=== PATIENT | male | born 1965 | race Caucasian/White ===

== ENCOUNTER 2017-08-18 09:07 | Observation (INO) | payer OTHER ==
[2017-08-18] VITALS (8 sets, daily range): BP systolic 105–174; BP diastolic 65–95; PULSE 84–106; RESP 18–23; TEMP 94–98.8; O2SAT 95–100
[~2017-08-18] VITALS: Ht 182.9 cm; Wt 153.6 kg
[2017-08-18] MEDS ORDERED: LISI10TA3 PO (09:22)
--- NOTE | 2017-08-18 09:42 | PD ---
HPI Chief Complaint: Chest Pain Time Seen by Provider: 09:29 Travel History International Travel<30 days: No Contact w/Intl Traveler<30days: No Traveled to known affect area: No History of Present Illness HPI 51yo M with PMH of HTN presents to the ED with c/o midsternal chest pain this morning. Said it is more of a discomfort and lasting seconds at a time. It is intermittent, nonradiating. Sitting up makes pain better. No exacerbating factors. Pt had some bilateral chest pressure a few days ago but went away on its own. +Occasional cough. Denies any fever, sob, n/v, abdominal pain, focal weakness or numbness. Pt had cardiac stress test bout 3-4 years ago. Does not have manufacturing helper. PFSH Past Medical History Diminished Hearing: No Hypertension: Yes Influenza Vaccination: No Past Surgical History Surgical History: No Previous Surgery Social History Alcohol Use: Yes (OCCASIONALLY) Tobacco Use: No Substance Use: No Allergies-Medications (Allergen,Severity, Reaction): Coded Allergies: No Known Allergies (Unverified , 08/18/17) Reported Meds & Prescriptions Reported Meds & Active Scripts Active Reported Lisinopril 10 Mg Tab 10 Mg PO DAILY Review of Systems Except as stated in HPI: all other systems reviewed are Neg Physical Exam Narrative GENERAL: 51yo M not in distress. SKIN: Focused skin assessment warm/dry. HEAD: Atraumatic. Normocephalic. EYES: Pupils equal and round. No scleral icterus. No injection or drainage. ENT: No nasal bleeding or discharge. Mucous membranes pink and moist. NECK: Trachea midline. No JVD. CARDIOVASCULAR: Tachycardic at low 100s. No murmur appreciated. RESPIRATORY: No accessory muscle use. Clear to auscultation. Breath sounds equal bilaterally. GASTROINTESTINAL: Abdomen soft, non-tender, nondistended. MUSCULOSKELETAL: No obvious deformities. No clubbing. No cyanosis. No edema. NEUROLOGICAL: Awake and alert. No obvious cranial nerve deficits. Motor grossly within normal limits. Normal speech. PSYCHIATRIC: Appropriate mood and affect; insight and judgment normal. Data Data Last Documented VS Vital Signs Date Time Temp Pulse Resp B/P (MAP) Pulse Ox O2 Delivery O2 Flow Rate FiO2 08/18/17 12:03 106 18 122/75 (91) 97 Room Air 08/18/17 09:09 98.8 Orders Orders Electrocardiogram (08/18/17 ) Basic Metabolic Panel (Bmp) (08/18/17 09:36) Ckmb (Isoenzyme) Profile (08/18/17 09:36) Complete Blood Count With Diff (08/18/17 09:36) Magnesium (Mg) (08/18/17 09:36) Prothrombin Time / Inr (Pt) (08/18/17 09:36) Act Partial Throm Time (Ptt) (08/18/17 09:36) Troponin I (08/18/17 09:36) Chest, Single Ap (08/18/17 09:36) Admit Order (Ed Use Only) (08/18/17 12:19) Aspirin (Aspirin) (08/18/17 12:30) Labs Laboratory Tests Test 08/18/17 09:53 White Blood Count 6.8 TH/MM3 Red Blood Count 5.53 MIL/MM3 Hemoglobin 16.4 GM/DL Hematocrit 47.2 % Mean Corpuscular Volume 85.3 FL Mean Corpuscular Hemoglobin 29.7 PG Mean Corpuscular Hemoglobin Concent 34.8 % Red Cell Distribution Width 14.2 % Platelet Count 328 TH/MM3 Mean Platelet Volume 7.9 FL Neutrophils (%) (Auto) 59.9 % Lymphocytes (%) (Auto) 29.1 % Monocytes (%) (Auto) 9.4 % Eosinophils (%) (Auto) 0.9 % Basophils (%) (Auto) 0.7 % Neutrophils # (Auto) 4.1 TH/MM3 Lymphocytes # (Auto) 2.0 TH/MM3 Monocytes # (Auto) 0.6 TH/MM3 Eosinophils # (Auto) 0.1 TH/MM3 Basophils # (Auto) 0.0 TH/MM3 CBC Comment AUTO DIFF Differential Comment AUTO DIFF CONFIRMED Platelet Estimate NORMAL Platelet Morphology Comment NORMAL Red Cell Morphology Comment NORMAL Prothrombin Time 10.5 SEC Prothromb Time International Ratio 1.0 RATIO Activated Partial Thromboplast Time 24.3 SEC Blood Urea Nitrogen 13 MG/DL Creatinine 1.15 MG/DL Random Glucose 118 MG/DL Calcium Level 9.1 MG/DL Magnesium Level 2.1 MG/DL Sodium Level 137 MEQ/L Potassium Level 4.2 MEQ/L Chloride Level 104 MEQ/L Carbon Dioxide Level 22.9 MEQ/L Anion Gap 10 MEQ/L Estimat Glomerular Filtration Rate 67 ML/MIN Total Creatine Kinase 92 U/L Troponin I LESS THAN 0.02 NG/ML MDM Medical Decision Making Medical Screen Exam Complete: Yes Emergency Medical Condition: Yes Interpretation(s) EKG: Sinus tachycardia at 107bpm. LAD. Q wave III, aVF. No prior to compare. Differential Diagnosis ACS vs. pneumonia Narrative Course 51yo M with atypical chest pain. Pt given aspirin and sublingual nitro PRN chest pain. Labs reviewed, no leukocytosis. Troponin negative. CXR negative. Pt has not had a stress test for years. Will admit to chest pain center for serial EKG and cardiac enzymes. Diagnosis Primary Impression: Chest pain Qualified Codes: R07.9 - Chest pain, unspecified Admitting Information Admitting Physician Requests: Jazmine Marie DO Aug 18, 2017 09:42
--- NOTE | 2017-08-18 09:57 | RADRPT ---
EXAM DATE/TIME: 08/18/2017 09:42 [facility] COMPARISON: No previous studies available for comparison. INDICATIONS : Chest pain. MEDICAL HISTORY : high blood pressure SURGICAL HISTORY : None. ENCOUNTER: Initial ACUITY: 1 day PAIN SCORE: 4/10 LOCATION: Bilateral chest FINDINGS: The cardiac silhouette is normal in transverse diameter. The lungs are free of acute parenchymal opac ity. No effusions are identified. There is elevation of the right hemidiaphragm. CONCLUSION: No acute cardiopulmonary disease. Regulo Thorne MD on August 18, 2017 at 9:55 Board Certified Radiologist. This report was verified electronically.
[2017-08-18 10:10] LABS: AUTOMATED NEUTROPHIL # 4.1 TH/MM3 (1.8-7.7); BASOPHIL % 0.7 % (0.0-2.0); EOSINOPHIL # 0.1 TH/MM3 (0-0.4); EOSINOPHIL % 0.9 % (0.0-4.0); HEMATOCRIT 47.2 % (39.0-51.0); HEMOGLOBIN 16.4 GM/DL (13.0-17.0); LYMPH % 29.1 % (9.0-44.0); MEAN CELL VOLUME 85.3 FL (80.0-100.0); MEAN CORPUSCULAR HEMOGLOBIN 29.7 PG (27.0-34.0); MEAN CORPUSCULAR HGB CONC 34.8 % (32.0-36.0); MEAN PLATELET VOLUME 7.9 FL (7.0-11.0); MONO % 9.4 % (0.0-8.0); MONOCYTE # 0.6 TH/MM3 (0-0.9); NEUT % 59.9 % (16.0-70.0); PLATELET COUNT 328 TH/MM3 (150-450); RED BLOOD COUNT 5.53 MIL/MM3 (4.50-5.90); RED CELL DISTRIBUTION WIDTH 14.2 % (11.6-17.2); WHITE BLOOD COUNT 6.8 TH/MM3 (4.0-11.0)
[2017-08-18 10:12] LABS: PROTHROMBIN TIME - PATIENT 10.5 SEC (9.8-11.6)
[2017-08-18 10:33] LABS: BICARBONATE 22.9 MEQ/L (21.0-32.0); BLOOD UREA NITROGEN 13 MG/DL (7-18); CALCIUM 9.1 MG/DL (8.5-10.1); CHLORIDE 104 MEQ/L (98-107); CREATININE 1.15 MG/DL (0.60-1.30); GLOMERULAR FILTRATION RATE 67 ML/MIN (>89); GLUCOSE,RANDOM 118 MG/DL (74-106); MAGNESIUM 2.1 MG/DL (1.5-2.5); SODIUM (NA) 137 MEQ/L (136-145); TROPONIN I LESS THAN 0.02 NG/ML (0.02-0.05)
[2017-08-18] MEDS ORDERED: NITROGLYCERIN 0.4 MG SL 25 TABS/BTL SL PRN (12:30)
[2017-08-18] MEDS ORDERED: ASPIRIN 325 MG TAB PO ONE (12:30)
[2017-08-18] MEDS ORDERED: ACETAMINOPHEN/HYDROcodone 325 MG/7.5 MG TAB PO PRN (13:30)
[2017-08-18] MEDS ORDERED: ALPRAZolam 0.25 MG TAB PO PRN (13:30)
[2017-08-18] MEDS ORDERED: ONDANSETRON HCL 4 MG/2 ML VIAL IV PUSH PRN (13:30)
[2017-08-18] MEDS ORDERED: ACETAMINOPHEN 500 MG CPLT PO PRN (13:30)
--- NOTE | 2017-08-18 14:11 | HHI.HP ---
HPI Primary Care Physician Unknown Chief Complaint Chest pain History of Present Illness This is a 51-year-old male that presents to ED via private vehicle with a complaint of tightness across the chest is been present intermittently for 1 week. Found nothing to bring on the discomfort. Nothing to worsen or improve it. That discomfort essentially resolved a few days ago however a different discomfort began. States that he has had intermittent twinge in the center of his chest lasting at most a second. Found nothing to bring on that discomfort but has been reoccurring multiple times over last 3 days. Denies shortness breath, nausea, or diaphoresis. Denies recent illness. Denies fevers or chills. Denies history of CAD. States he had a stress test a few years ago at a hospital in [place] and that it was okay. Review of Systems General: Patient denies fevers, chills recent, and recent travel HEENT: Patient denies headache, sore throat, difficulty swallowing. Cardiovascular: Has the chest discomfort as mentioned above. Denies sensation of heart beating rapidly or irregularly. No syncope. Denies diaphoresis. Respiratory: Denies shortness of breath or inspirational chest discomfort. Denies coughing wheezing or hemoptysis. GI: Patient denies nausea, vomiting, diarrhea, abdominal pain, bloody stools. Musculoskeletal: Chronic back pain. Patient denies joint pain or edema. Denies calf pain or edema. Neurovascular: Patient denies numbness, tingling, weakness in extremities. Denies headache. Endocrine: Denies polyuria and polydipsia. Hematologic: Denies easy bruising. Skin: Denies rash or itching. Past Family Social History Allergies: Coded Allergies: No Known Allergies (Unverified , 08/18/17) Past Medical History Hypertension. Obesity. Denies hyperlipidemia, diabetes, and known CAD. Lifetime nonsmoker. Past Surgical History Denies. Reported Medications Reported Meds & Active Scripts Active Reported Lisinopril 10 Mg Tab 10 Mg PO DAILY Active Ordered Medications Current Medications Medications (Trade) Dose Ordered Sig/Rashmi Route Start Time Stop Time Status Last Admin (Nitrostat Sl) 0.4 mg Q5M PRN SL 08/18/17 12:30 (Tylenol) 500 mg Q4H PRN PO 08/18/17 13:30 ([place] 7.5-325 Mg) 1 tab Q4H PRN PO 08/18/17 13:30 (Zofran Inj) 4 mg Q6H PRN IV PUSH 08/18/17 13:30 (Protonix) 40 mg DAILY PO 08/18/17 13:30 (Aspirin) 325 mg DAILY PO 08/19/17 09:00 (Xanax) 0.25 mg Q8H PRN PO 08/18/17 13:30 Family History States that his father had CAD with onset in his early 60s with a CABG. at age 67 of a myocardial infarction. Social History Lifetime nonsmoker. Denies illicit drugs. Has occasional alcohol. Works for [employer] in [place]. Physical Exam Vital Signs Vital Signs Date Time Temp Pulse Resp B/P (MAP) Pulse Ox O2 Delivery O2 Flow Rate FiO2 08/18/17 12:03 106 18 122/75 (91) 97 Room Air 08/18/17 09:18 100 Room Air 08/18/17 09:09 98.8 99 22 174/95 (121) 100 Physical Exam GENERAL: This is a well-nourished, well-developed patient, in no apparent distress. Patient speaks in clear complete sentences. Patient is pleasant. Patient is morbidly obese at 153.6 kg. HEENT: Head is atraumatic and normocephalic. Neck is supple without lymphadenopathy and trachea is midline. No JVD or carotid bruits. CARDIOVASCULAR: Regular rate and rhythm without murmurs, gallops, or rubs. RESPIRATORY: Clear to auscultation. Breath sounds equal bilaterally. No wheezes , rales, or rhonchi. Chest wall is nontender. No use of accessory muscles. GASTROINTESTINAL: Abdomen is nontender, nondistended. Abdomen soft. No obvious pulsatile mass or bruit. No CVA tenderness. Strong femoral pulses bilaterally. Normal bowel sounds in all quadrants. MUSCULOSKELETAL: Patient is moving upper and lower extremities freely. No calf tenderness or edema, no Homans sign. Strong pulses in upper and lower extremities. NEUROLOGICAL: Patient is alert and oriented. Cranial nerves 2-12 are grossly intact. No focal deficits and speech is clear. SKIN: No rash and turgor is normal. Laboratory Laboratory Tests Test 08/18/17 09:53 White Blood Count 6.8 Red Blood Count 5.53 Hemoglobin 16.4 Hematocrit 47.2 Mean Corpuscular Volume 85.3 Mean Corpuscular Hemoglobin 29.7 Mean Corpuscular Hemoglobin Concent 34.8 Red Cell Distribution Width 14.2 Platelet Count 328 Mean Platelet Volume 7.9 Neutrophils (%) (Auto) 59.9 Lymphocytes (%) (Auto) 29.1 Monocytes (%) (Auto) 9.4 Eosinophils (%) (Auto) 0.9 Basophils (%) (Auto) 0.7 Neutrophils # (Auto) 4.1 Lymphocytes # (Auto) 2.0 Monocytes # (Auto) 0.6 Eosinophils # (Auto) 0.1 Basophils # (Auto) 0.0 CBC Comment AUTO DIFF Differential Comment AUTO DIFF CONFIRMED Platelet Estimate NORMAL Platelet Morphology Comment NORMAL Red Cell Morphology Comment NORMAL Prothrombin Time 10.5 Prothromb Time International Ratio 1.0 Activated Partial Thromboplast Time 24.3 Blood Urea Nitrogen 13 Creatinine 1.15 Random Glucose 118 Calcium Level 9.1 Magnesium Level 2.1 Sodium Level 137 Potassium Level 4.2 Chloride Level 104 Carbon Dioxide Level 22.9 Anion Gap 10 Estimat Glomerular Filtration Rate 67 Total Creatine Kinase 92 Troponin I LESS THAN 0.02 Result Diagram: 08/18/17 0953 08/18/17 0953 Imaging Last 48 hours Impressions Chest X-Ray 08/18/17 0936 Signed Impressions: Service Date/Time: Friday, August 18, 2017 09:42 - CONCLUSION: No acute cardiopulmonary disease. Regulo Thorne MD Course Initial EKG is sinus tachycardia rate of [address] segment depressions or elevations. Caprini VTE Risk Assessment Caprini VTE Risk Assessment: No/Low Risk (score <= 1) Caprini Risk Assessment Model Point Value = 1 Point Value = 2 Point Value = 3 Point Value = 5 Age 41-60 Minor surgery BMI > 25 kg/m2 Swollen legs Varicose veins or History of unexplained or recurrent spontaneous Oral contraceptives or hormone replacement Sepsis (< 1 month) Serious lung disease, including pneumonia (< 1 month) Abnormal pulmonary function Acute myocardial infarction Congestive heart failure (< 1 month) History of inflammatory bowel disease Medical patient at bed rest Age 61-74 Arthroscopic surgery Major open surgery (> 45 min) Laparoscopic surgery (> 45 min) Malignancy Confined to bed (> 72 hours) Immobilizing plaster cast Central venous access Age >= 75 History of VTE Family history of VTE Factor V Leiden Prothrombin [id number] Lupus anticoagulant Anticardiolipin antibodies Elevated serum homocysteine Heparin-induced thrombocytopenia Other congenital or acquired thrombophilia Stroke (< 1 month) Elective arthroplasty Hip, pelvis, or leg fracture Acute spinal cord injury (< 1 month) Prophylaxis Regimen Total Risk Factor Score Risk Level Prophylaxis Regimen 0-1 Low Early ambulation 2 Moderate Order ONE of the following: *Sequential Compression Device (SCD) *Heparin 5000 units SQ BID 3-4 Higher Order ONE of the following medications: *Heparin 5000 units SQ TID *Enoxaparin/Lovenox 40 mg SQ daily (WT < 150 kg, CrCl > 30 mL/min) *Enoxaparin/Lovenox 30 mg SQ daily (WT < 150 kg, CrCl > 10-29 mL/min) *Enoxaparin/Lovenox 30 mg SQ BID (WT < 150 kg, CrCl > 30 mL/min) AND/OR *Sequential Compression Device (SCD) 5 or more Highest Order ONE of the following medications: *Heparin 5000 units SQ TID (Preferred with Epidurals) *Enoxaparin/Lovenox 40 mg SQ daily (WT < 150 kg, CrCl > 30 mL/min) *Enoxaparin/Lovenox 30 mg SQ daily (WT < 150 kg, CrCl > 10-29 mL/min) *Enoxaparin/Lovenox 30 mg SQ BID (WT < 150 kg, CrCl > 30 mL/min) AND *Sequential Compression Device (SCD) Assessment and Plan Assessment and Plan * Chest pain: Patient will continue to have serial cardiac enzymes and EKGs for ruling out purposes. He will be seen by Dr. Nam cardiology in the chest pain center and if ruling out will then proceed with a stress test in the morning. He'll be discharged home if the stress test is nonischemic with instructions to follow-up with PCP. Return to ED as needed. * Hypertension: Continue current medication. * Obesity: Patient has been counseled on importance of diet, exercise, and weight loss. Patient is stable at this time. He is agreeable to this plan. Arturo Dillon Aug 18, 2017 14:11
[2017-08-18] MEDS: PANTOPRAZOLE SOD 40 MG DELAYED RELEASE TAB PO SCH (14:19)
[2017-08-18 15:07] LABS: TROPONIN I LESS THAN 0.02 NG/ML (0.02-0.05)
--- NOTE | 2017-08-18 16:54 | EKG ---
Date Performed: 08/18/2017 Time Performed: 09:22:46 PTAGE: 51 years EKG: SINUS TACHYCARDIA POSSIBLE RIGHT VENTRICULAR CONDUCTION DELAY INFERIOR MYOCARDIAL INFARCTIO N ABNORMAL ECG NO PREVIOUS TRACING DOCTOR: Tia Olsen Interpretating Date/Time 08/18/2017 16:52:51
[2017-08-18 22:01] LABS: TROPONIN I LESS THAN 0.02 NG/ML (0.02-0.05)
[2017-08-19 03:53] VITALS: BP 111/74; PULSE 86; RESP 18; TEMP 97.9; O2SAT 97
[2017-08-19 07:02] VITALS: PULSE 85
[2017-08-19 07:57] VITALS: BP 127/83; PULSE 86; RESP 18; TEMP 98.4; O2SAT 97
[2017-08-19 08:12] VITALS: O2SAT 97
[2017-08-19] MEDS: PANTOPRAZOLE SOD 40 MG DELAYED RELEASE TAB PO SCH (08:17)
[2017-08-19] MEDS ORDERED: LISINOPRIL 10 MG TAB PO SCH (09:00)
[2017-08-19] MEDS ORDERED: ASPIRIN 325 MG TAB PO SCH (09:00)
[2017-08-19] MEDS ORDERED: REGADENOSON INJ 0.4 MG/5 ML SYR ONE (09:45)
--- NOTE | 2017-08-19 09:52 | EKG ---
Date Performed: 08/18/2017 Time Performed: 17:08:57 PTAGE: 51 years EKG: Sinus rhythm BORDERLINE LEFT AXIS DEVIATION INCOMPLETE RIGHT BUNDLE BRANCH BLOCK BORDERLINE ECG PREVIOUS TRACING : 08/18/2017 13.58 Since previous tracing, no significant change noted DOCTOR: Regulo Odonnell Interpretating Date/Time 08/19/2017 09:51:23
--- NOTE | 2017-08-19 09:53 | EKG ---
Date Performed: 08/18/2017 Time Performed: 13:58:17 PTAGE: 51 years EKG: Sinus rhythm WITH SINUS ARRHYTHMIA INCOMPLETE RIGHT BUNDLE BRANCH BLOCK NONSPECIFIC T-WAVE ABNORMALITY BORDERLINE ECG PREVIOUS TRACING : 08/18/2017 13.57 Since previous tracing, no significant change noted DOCTOR: Regulo Odonnell Interpretating Date/Time 08/20/2017 06:58:17
[2017-08-19 11:24] VITALS: BP 136/93; PULSE 90; RESP 18; TEMP 98; O2SAT 97
--- NOTE | 2017-08-19 11:44 | RADRPT ---
EXAM DATE/TIME: 08/19/2017 09:25 [facility] COMPARISON: No previous studies available for comparison. INDICATIONS : Substernal chest pain. Angina. DOSE: 35 mCi Tc99m Myoview at stress. 11 mCi Tc99m Myoview at rest. 0.4 mg Lexiscan STRESS SYMPTOMS: Dyspnea and heart racing. EJECTION FRACTION: > 70% MEDICAL HISTORY : Hypertension. SURGICAL HISTORY : None. ENCOUNTER: Initial ACUITY: 2 days PAIN SCALE: 4/10 LOCATION: Substernal chest TECHNIQUE: The patient underwent pharmacologic stress with infusion of prescribed dose. Continuous ECG tracing was monitored during stress. Gated SPECT imaging was performed after stress and conventional SPECT i maging was performed at rest. The examination was performed on a SPECT/CT scanner, both attenuation and non-corrected datasets were reviewed. FINDINGS: DISTRIBUTION: The maximum perfused segment at stress is in the anteroseptal wall. PERFUSION STUDY: The pattern of perfusion at stress is within normal limits. GATED STUDY: There is intact wall motion and thickening without hypokinetic or dyskinetic segments. CONCLUSION: 1. Unremarkable myocardial perfusion scan. RISK CATEGORY: Low (<1% Annual Mortality Rate) Regulo Thorne MD on August 19, 2017 at 11:41 Board Certified Radiologist. This report was verified electronically.
--- NOTE | 2017-08-19 12:00 | HHI.DCPOC ---
Discharge Care Plan Diagnosis: (1) Chest pain (2) Hypertension (3) Obesity Goals to Promote Your Health * To prevent worsening of your condition and complications * To maintain your health at the optimal level Directions to Meet Your Goals Take your medications as prescribed Follow your dietary instruction Follow activity as directed Keep your appointments as scheduled Take your immunizations and boosters as scheduled If your symptoms worsen call your PCP, if no PCP go to Urgent Care Center or Emergency Room Smoking is Dangerous to Your Health. Avoid second hand smoke Call the 24-hour hour crisis hotline for domestic abuse at Arturo Dillon Aug 19, 2017 12:00
--- NOTE | 2017-08-20 19:27 | TR ---
Date Performed: 08/19/2017 Time Performed: 09:47:44 DOCTOR: Consuelo Nam DRUG LIST: CLINICAL HISTORY: CHEST PAIN REASON FOR TEST: CHEST PAIN REASON FOR ENDING: OBSERVATION: CONCLUSION: Lexiscan stress test was performed under standard four minute protocol. Radionucl[place] e was injected one minute prior to ending the test. No electrocardiographic abormalities were present to suggest ischemia. Nuclear imaging and interpretation are pending. COMMENTS:
== END 2017-08-19 14:12 | disposition home or self-care (01) ==
LOC: NEPC 09:07 → NEDA 12:20 → NEPFCDU 14:34
PROVIDERS: ADMIT Internal Medicine Interventional Cardiology; ATTEND Internal Medicine Interventional Cardiology
DX: R07.89 Other chest pain (principal); I10 Essential (primary) hypertension; E66.9 Obesity, unspecified; Z68.42 Body mass index [BMI] 45.0-49.9, adult; R05 Cough; R94.31 Abnormal electrocardiogram [ECG] [EKG]
CPT/HCPCS: 71045; 78452; 80048; 82550; 82552; 83735; 84484; 85025; 85610; 85730; 93005; 93017; 99285; A9502; G0378; J2785